=== PATIENT | female | born 1950 | race Caucasian/White ===

== ENCOUNTER 2019-01-21 11:56 | Emergency (ER) | payer MEDICARE, BC ==
[2019-01-21 13:22] VITALS: BP 159/68
--- NOTE | 2019-01-21 13:29 | EDM.PDOC ---
ED HPI GENERAL MEDICAL PROBLEM - General Chief Complaint: Genitourinary Problem Stated Complaint: BLADDER INFECTION Time Seen by Provider: 01/21/19 13:29 Source of Information: Reports: Patient, Family History Limitations: Reports: No Limitations - History of Present Illness INITIAL COMMENTS - FREE TEXT/NARRATIVE: 68-year-old female that had a total knee replacement in month ago, has been having some urinary symptoms since her surgery. She discussed it with her home nurse today and she recommended coming in and having it checked. She has no fevers or chills but she just doesn't feel well today, mild nausea and has a fever of "99". Intermittent lower abdominal discomfort. Onset: Unknown/Unsure (symptoms have been ongoing for weeks) Associated Symptoms: Reports: Malaise. Denies: Chest Pain, Cough - Related Data Allergies Allergy/AdvReac Type Severity Reaction Status Date / Time No Known Allergies Allergy Verified 05/19/14 11:11 Home Meds: Home Meds Aspirin [Halfprin] 325 mg PO DAILY 04/13/15 [History] Calcium Carbonate/Vitamin D3 [Calcium 600 + D Tablet] 1 tab PO DAILY 04/13/15 [ History] Fish Oil/DHA/EPA [Fish Oil 1,200 MG] 1 each PO DAILY 04/13/15 [History] Krill/Om-3/DHA/EPA/Phospho/Ast [Krill Oil 500 mg Softgel] 1 each PO DAILY [History] Loratadine 10 mg PO BID 04/13/15 [History] Multivitamin with Minerals [Multiple Vitamin] 1 tab PO DAILY 04/13/15 [History] atorvaSTATin [Lipitor] 40 mg PO BEDTIME 04/13/15 [History] carBAMazepine [TEGretol XR] 300 mg PO TID 04/13/15 [History] oxyCODONE 5 mg PO Q6H PRN 04/13/15 [History] diphenhydrAMINE HCl [Benadryl] 50 mg PO Q4HR PRN 12/11/17 [History] Ketorolac [Toradol] 10 mg PO ASDIRECTED 01/21/19 [History] Pantoprazole 20 mg PO DAILY 01/21/19 [History] Past Medical History [employer] History: Reports: Musculoskeletal History: Reports: Arthritis Other Musculoskeletal History: TRIGEMINAL NEUROALGIA. bilat knee pain - Past Surgical History HEENT Surgical History: Reports: Tonsillectomy Female Surgical History: Reports: Hysterectomy Social & Family History - Tobacco Use Smoking Status *Q: Never Smoker - Caffeine Use Caffeine Use: Reports: Coffee - Recreational Drug Use Recreational Drug Use: No ED ROS GENERAL - Review of Systems Review Of Systems: See Below Constitutional: Reports: Fever, Malaise Respiratory: Denies: Shortness of Breath, Cough Cardiovascular: Denies: Chest Pain GI/Abdominal: Reports: Abdominal Pain. Denies: Diarrhea : Denies: Dysuria, Frequency Skin: Reports: Pallor ED EXAM, RENAL/ - Physical Exam Exam: See Below Exam Limited By: No Limitations General Appearance: Alert, No Apparent Distress Respiratory/Chest: No Respiratory Distress, Lungs Clear Cardiovascular: Regular Rate, Rhythm GI/Abdominal: Soft, Other (Mild discomfort to palpation of the suprapubic area but no guarding or rebound, no focal tenderness) Neurological: Alert, Oriented Psychiatric: Normal Affect, Normal Mood Skin Exam: Warm, Dry Course - Vital Signs Last Recorded V/S: Last Vital Signs Temp 97 F 01/21/19 13:22 Pulse 70 01/21/19 13:22 Resp 16 01/21/19 13:22 BP 159/68 H 01/21/19 13:22 Pulse Ox 99 01/21/19 13:22 - Orders/Labs/Meds Orders: Active Orders 24 hr Category Date Time Status CULTURE URINE [RM] Stat Lab 01/21/19 14:15 Ordered Labs: Laboratory Tests 01/21/19 Range/Units 13:29 Urine Color Yellow Urine Appearance Clear Urine pH 7.0 (4.5-8.0) Ur Specific [place] 1.020 (1.008-1.030) Urine Protein Negative (NEGATIVE) mg/dL Urine Glucose (UA) Normal (NEGATIVE) mg/dL Urine Ketones Negative (NEGATIVE) mg/dL Urine Occult Blood Negative (NEGATIVE) Urine Nitrite Negative (NEGATIVE) Urine Bilirubin Negative (NEGATIVE) Urine Urobilinogen Normal (NORMAL) mg/dL Ur Leukocyte Esterase Negative (NEGATIVE) Urine RBC 0-5 (0-5) Urine WBC 0-5 (0-5) Ur Epithelial Cells Few Amorphous Sediment Not seen Urine Bacteria Few Urine Mucus Not seen - Re-Assessments/Exams Free Text/Narrative Re-Assessment/Exam: 01/21/19 14:09 UA was obtained and looks basically normal other than few bacteria present microscopically. Certainly nothing that needs treatment. Encouraged the patient to give this a few more days and she agreed, if she becomes more ill such as persistent fever or increased pain or dysuria she'll get rechecked. 01/21/19 14:16 After discussing the patient's symptoms further, she is still taking oxycodone so may be having some mild constipation issues. I did culture the urine and she has a postoperative appointment in 48 hours, they can call for results of that if interested or if she feels she is having more symptoms. Departure - Departure Time of Disposition: 14:20 Disposition: Home, Self-Care 01 Condition: Good Clinical Impression: Lower abdominal pain - Discharge Information Instructions: Abdominal Pain, Adult, [id number] Referrals: Dm Werner MD [Primary Care Provider] - Forms: ED Department Discharge Care Plan Goals: Continue your current medications, increase activity as tolerated and return or recheck anytime if you develop more pain, persistent fever other concerning symptoms. - My Orders Last 24 Hours: My Active Orders 01/21/19 14:15 CULTURE URINE [RM] Stat - Assessment/Plan Last 24 Hours: My Active Orders 01/21/19 14:15 CULTURE URINE [RM] Stat
== END 2019-01-21 14:21 | disposition home or self-care (01) ==
LOC: JP.ED 11:56
DX: R10.30 Lower abdominal pain, unspecified (principal); M19.90 Unspecified osteoarthritis, unspecified site; Z98.890 Other specified postprocedural states; Z90.710 Acquired absence of both cervix and uterus; Z79.82 Long term (current) use of aspirin
CPT/HCPCS: 81001; 87086; 99283

== ENCOUNTER 2020-06-05 07:01 | Day surgery (SDC) | payer MEDICARE, BC ==
[2020-06-05] MEDS ORDERED: fentaNYL 100 MCG/2 ML SDV ONE (07:19)
[2020-06-05] MEDS ORDERED: Propofol 200 MG/20 ML SDV ONE ×2 (07:19→08:51)
[2020-06-05] MEDS ORDERED: Midazolam 1 MG/ML 2 ML SDV ONE (07:19)
[2020-06-05] MEDS ORDERED: Sodium Chloride 0.9% 1,000 ML IV SCH (07:30)
[2020-06-05 09:56] VITALS: BP 147/83; PULSE 61
--- NOTE | 2020-06-05 15:32 | OR ---
DATE OF PROCEDURE: 06/05/2020 SURGEON: Jossue Vargas MD PROCEDURE: Colonoscopy. FINDINGS: Normal colonoscopy. COMPLICATION: None. ACQUISITIONS LOGISTICS ANALYST: None. ANESTHESIA: MAC. PREOPERATIVE DIAGNOSIS: Screening colonoscopy. POSTOPERATIVE DIAGNOSIS: Screening colonoscopy. RISKS: Risks, benefits, alternatives, and limitations including, but not limited to infection, bleeding, and perforation were explained. The patient then wished to proceed. PROCEDURE IN DETAIL: The patient was placed in left lateral decubitus position. Digital rectal exam was performed without abnormality. Scope was introduced and advanced atraumatically to the ileocecal valve. The scope was brought back through the ascending, transverse, descending colon, and retroflexed. No evidence of old or new blood. No masses. No polyps. No colitis. No abnormalities on retroflexion. Greater than 10 minutes was spent removing the scope. The patient tolerated the procedure well. Jossue Vargas MD /[id number]
== END 2020-06-05 10:25 | disposition home or self-care (01) ==
LOC: JP.SDS 07:01
PROVIDERS: ATTEND Surgery
DX: Z12.11 Encounter for screening for malignant neoplasm of colon (principal)
CPT/HCPCS: G0121; J2250; J2704; J3010; J7030; 88305; 88312

== ENCOUNTER 2024-07-21 11:14 | Emergency (ER) | payer MEDICARE, BC ==
[2024-07-21] MEDS: Lidocaine 1% 10 ML MDV INJECT ONE (12:16)
[2024-07-21] MEDS: Diphtheria,Pertussis(Acell),Tetanus Vaccine 0.5 ML Syringe IM ONE (12:16)
[2024-07-21 13:31] VITALS: BP 145/76; PULSE 57
== END 2024-07-21 13:32 | disposition home or self-care (01) ==
LOC: JP.ED 11:14
DX: S61.012A Laceration without foreign body of left thumb without damage to nail, initial encounter (principal); Z90.710 Acquired absence of both cervix and uterus; Z79.899 Other long term (current) drug therapy; Z23 Encounter for immunization; W26.0XXA Contact with knife, initial encounter
CPT/HCPCS: 12002; 90471; 90715; 99282; 99282-25